=== PATIENT | male | born 1955 | race Caucasian/White ===

== ENCOUNTER 2018-08-03 00:20 | Emergency (ER) | payer MEDICARE ==
[2018-08-03 00:28] VITALS: TEMP 98
[2018-08-03] MEDS ORDERED: ONDANSETRON 4 MG/2 ML VIAL IVP STA (01:07)
[2018-08-03] MEDS ORDERED: MORPHINE SULFATE 4 MG/ML SYRINGE IV STA (01:07)
[2018-08-03] MEDS ORDERED: SODIUM CHLORIDE 0.9% 1,000 ML IV STA (01:07)
--- NOTE | 2018-08-03 02:23 | ED ---
Back Pain HPI - General Chief Complaint: Back Pain/Injury Stated Complaint: back pain Time Seen by Provider: 08/03/18 00:33 Source: patient, EMS Limitations: no limitations - History of Present Illness Initial Comments: 63-year-old male patient presents the emergency department today for evaluation of increased low back pain. Patient states he does have a history of chronic back pain related to remote back fractures. Patient states that over the last week his pain has increased. Patient states he was standing doing dishes when his legs gave out on him and he fell striking his back against the wall last . Patient states since this time his pain has been significantly worse. States that he has not been able to eat or drink for the last week due to the pain. He is complaining of some mild abdominal discomfort. He denies any loss of bowel or bladder control. Denies any radiation of the pain down his legs. He denies any saddle anesthesia. He denies fever or chills. Denies nausea, vomiting, dizziness, weakness, chest pain, or shortness of breath. Patient denies any recent rash, diarrhea, constipation, back pain, numbness, tingling, dizziness, weakness, hematuria, dysuria, urinary urgency, urinary frequency, headache, visual changes, or any other complaints. - Related Data Home Medications Medication Instructions Recorded Confirmed ALPRAZolam [Xanax] 0.5 mg PO HS PRN 02/23/14 02/23/14 Amitriptyline HCl [Elavil] 25 mg PO HS 02/23/14 02/23/14 Hydrocodone/Acetaminophen 1 each PO QID PRN 02/23/14 02/23/14 [Hydrocodone/Acetaminophen 10-325] Previous Rx's Medication Instructions Recorded ALPRAZolam [Xanax] 0.5 mg PO Q12HR PRN #12 tablet 02/23/14 Amitriptyline HCl [Elavil] 25 mg PO HS #12 tablet 02/23/14 Hydrocodone/Acetaminophen [[place] 1 each PO Q4HR PRN #12 tablet 02/23/14 10-325 Tablet] Allergies Allergy/AdvReac Type Severity Reaction Status Date / Time No Known Allergies Allergy Verified 02/23/14 01:55 Review of Systems ROS Statement: Those systems with pertinent positive or pertinent negative responses have been documented in the HPI. ROS Other: All systems not noted in ROS Statement are negative. Past Medical History Additional Past Medical History / Comment(s): chronic back pain History of Any Multi-Drug Resistant Organisms: None Reported Past Surgical History: Hernia Repair, Orthopedic Surgery Past Psychological History: No Psychological Hx Reported Smoking Status: Current every day smoker Past Alcohol Use History: Daily, Heavy Past Drug Use History: None Reported General Exam Limitations: no limitations General appearance: alert, in no apparent distress, other (This is a well- developed, well-nourished elderly male patient in no acute distress. Vital signs upon presentation are temperature 98.0F, pulse 102, respirations 20, blood pressure 138/81, pulse ox 91% on room air.) ENT exam: Present: normal exam, normal oropharynx, mucous membranes moist Respiratory exam: Present: wheezes (Patient has expiratory wheezing throughout all posterior lung starkey.). Absent: normal lung sounds bilaterally, respiratory distress, rales, rhonchi, stridor Cardiovascular Exam: Present: regular rate, normal rhythm, normal heart sounds. Absent: systolic murmur, diastolic murmur, rubs, gallop, clicks GI/Abdominal exam: Present: soft, tenderness (Reports mild generalized tenderness), normal bowel sounds. Absent: distended, guarding, rebound, rigid Back exam: Present: normal inspection, vertebral tenderness (Lower lumbar tenderness) Neurological exam: Present: alert, oriented X3, CN II-XII intact Psychiatric exam: Present: normal affect, normal mood Skin exam: Present: warm, dry, intact, normal color. Absent: rash Course Vital Signs 08/03/18 00:22 Temperature 98.0 F Pulse Rate 102 H Respiratory 20 Rate Blood Pressure 138/81 O2 Sat by Pulse 91 L Oximetry Medical Decision Making - Medical Decision Making 63-year-old male patient who admits to being a daily drinker presents the emergency department today with complaints of increased low back pain for the last week. Physical examination did reveal some mild generalized abdominal tenderness. Patient is neurologically intact with no focal deficits. No concerning symptoms for cauda equina. Did perform CT abdomen and pelvis to include the lumbar spine which showed no acute abnormalities other than some dilated small bowel presence of fluid-filled loops consistent with nonspecific enteritis. Patient will be discharged home to follow-up with his primary care physician to obtain prescriptions for pain for his chronic pain symptoms. He will be instructed to start with clear liquid diet and advance as tolerated. Most likely patient's low oxygen saturation is chronic as he does have history of COPD and lungs are wheezy. He does not complaining of shortness of breath at this time. He is instructed to follow up with primary care physician for recheck in 1-2 days for further evaluation of his increased low back pain as well as for management of his chronic COPD symptoms. I did not feel comfortable discharging patient with prescriptions due to patient's use of alcohol daily. Return parameters were discussed in detail. He verbalizes understanding and agrees with this plan. - Lab Data Result diagrams: 08/03/18 02:24 08/03/18 02:24 Lab Results 08/03/18 08/03/18 Range/Units 02:24 02:24 WBC 13.3 H (3.8-10.6) k/uL RBC 4.65 (4.30-5.90) m/uL Hgb 15.1 (13.0-17.5) gm/dL Hct 46.0 (39.0-53.0) % MCV 98.9 (80.0-100.0) fL MCH 32.4 (25.0-35.0) pg MCHC 32.7 (31.0-37.0) g/dL RDW 16.4 H (11.5-15.5) % Plt Count 292 (150-450) k/uL Neutrophils % 84 % Lymphocytes % 9 % Monocytes % 5 % Eosinophils % 1 % Basophils % 0 % Neutrophils # 11.2 H (1.3-7.7) k/uL Lymphocytes # 1.2 (1.0-4.8) k/uL Monocytes # 0.6 (0-1.0) k/uL Eosinophils # 0.2 (0-0.7) k/uL Basophils # 0.0 (0-0.2) k/uL Anisocytosis Slight Macrocytosis Slight Sodium 130 L (137-145) mmol/L Potassium 4.6 (3.5-5.1) mmol/L Chloride 97 L (98-107) mmol/L Carbon Dioxide 21 L (22-30) mmol/L Anion Gap 12 mmol/L BUN 8 L (9-20) mg/dL Creatinine 0.65 L (0.66-1.25) mg/dL Est GFR (CKD-EPI)AfAm >90 (>60 ml/min/1.73 sqM) Est GFR (CKD-EPI)NonAf >90 (>60 ml/min/1.73 sqM) Glucose 113 H (74-99) mg/dL Calcium 9.4 (8.4-10.2) mg/dL Total Bilirubin 0.4 (0.2-1.3) mg/dL AST 37 (17-59) U/L ALT 37 (21-72) U/L Alkaline Phosphatase 160 H (38-126) U/L Total Protein 6.8 (6.3-8.2) g/dL Albumin 3.7 (3.5-5.0) g/dL Amylase 33 (30-110) U/L Lipase 60 (23-300) U/L - Radiology Data Radiology results: report reviewed, image reviewed Two-view x-ray of the chest is obtained. There is no heart failure pneumonic infiltrate. heart size is normal. there is no pleural effusion. there is slight coarsening of the interstitial markings. there is emphysematous changes in the upper lobes. impression by dr. lyman shows copd and pulmonary fibrosis. There is clearing of the right lower lobe pneumonia compared to old exam. CT of the abdomen and pelvis was obtained. Report was reviewed in its entirety. Impression by Dr. Lyman shows compression fractures as above there are probably old. I see no acute fracture. No evidence of any significant bony spinal stenosis in the lumbar spine. Mild changes of the jejunum as well as suggestive of nonspecific enteritis. Nonobstructing right renal calculi. Nonspecific upper abdominal lymph nodes are likely inflammatory. Disposition Clinical Impression: Chronic low back pain, Enteritis Disposition: HOME SELF-CARE Condition: Good Instructions: Chronic Back Pain (ED), Enteritis (ED) Additional Instructions: Start with clear liquid diet and advance as tolerated. Follow-up through primary care physician to obtain pain management prescriptions. Return to the emergency department immediately for any new, worsening, or concerning symptoms. Is patient prescribed a controlled substance at d/c from ED?: No Referrals: Teofilo Paul DO [Primary Care Provider] - 1-2 days Time of Disposition: 04:02
[2018-08-03 02:38] LABS: Anisocytosis Slight; Basophils % (A) 0 %; Eosinophils # (A) 0.2 k/uL (0-0.7); Eosinophils % (A) 1 %; HGB 15.1 gm/dL (13.0-17.5); Lymphocytes # (A) 1.2 k/uL (1.0-4.8); Lymphocytes % (A) 9 %; MCH 32.4 pg (25.0-35.0); MCHC 32.7 g/dL (31.0-37.0); MCV 98.9 fL (80.0-100.0); Macrocytosis Slight; Mean Platelet Volume 6.8; Monocytes # (A) 0.6 k/uL (0-1.0); Monocytes % (A) 5 %; Neutrophils # (A) 11.2 k/uL (1.3-7.7); Neutrophils % (A) 84 %; Platelet Count 292 k/uL (150-450); RBC 4.65 m/uL (4.30-5.90); RDW 16.4 % (11.5-15.5); WBC 13.3 k/uL (3.8-10.6)
[2018-08-03 02:47] LABS: ALT 37 U/L (21-72); AST 37 U/L (17-59); Albumin 3.7 g/dL (3.5-5.0); Alkaline Phosphatase 160 U/L (38-126); Amylase 33 U/L (30-110); Anion Gap 12 mmol/L; Blood Urea Nitrogen 8 mg/dL (9-20); Calcium 9.4 mg/dL (8.4-10.2); Carbon Dioxide 21 mmol/L (22-30); Chloride 97 mmol/L (98-107); Glucose 113 mg/dL (74-99); Lipase 60 U/L (23-300); Potassium 4.6 mmol/L (3.5-5.1); Sodium 130 mmol/L (137-145); Total Bilirubin 0.4 mg/dL (0.2-1.3); Total Protein 6.8 g/dL (6.3-8.2)
--- NOTE | 2018-08-03 03:03 | XR ---
EXAMINATION TYPE: XR chest 2V DATE OF EXAM: 08/03/2018 COMPARISON: 07/03/2011 HISTORY: Chest pain TECHNIQUE: Frontal and lateral views of the chest are obtained. FINDINGS: There is no heart failure nor confluent pneumonic infiltrate. Heart size is normal. There is no pleural effusion. There is slight coarsening of interstitial markings. There are emphysematous changes in the upper lobes. IMPRESSION: COPD and pulmonary fibrosis. There is clearing of right lower lobe pneumonia compared to old exam.
--- NOTE | 2018-08-03 03:15 | CT ---
EXAMINATION TYPE: CT abdomen pelvis wo con DATE OF EXAM: 08/03/2018 COMPARISON: None HISTORY: lower back pain CT DLP: 421.30 mGycm Automated exposure control for dose reduction was used. TECHNIQUE: Helical acquisition of images was performed from the lung bases through the pelvis. FINDINGS: There is minimal interstitial linear density at the right lung base. There are small linear density i n the right middle lobe. There is no pleural effusion. Heart size is normal. There is no pericardial effusion. Liver and spleen appear normal. Bile ducts are not dilated. There is no evidence of a pancreatic mass . Gallbladder appears normal. Gallbladder is distended and measures 4 cm in diameter. There are scattered peripancreatic lymph nodes and mesenteric lymph nodes that measure up to 1 cm. Th e stomach appears normal. There is no adrenal mass. There is a 2 mm calcification upper pole right kidney. There is no hydronep hrosis. There is 3 mm calcification lower pole right kidney. There is a 2 cm cortical cyst lower pole right kidney. There are some distended loops of air and fluid-filled small bowel in the mid abdomen. I do not see e vidence of a mechanical bowel obstruction. Small bowel measures up to 2.3 cm. There is some mild wall thickening of the proximal jejunum. There is no sign of free air. There is no ascites. There are spondylotic changes in the lumbar spine. There is 5% depression superior endplate of L2. There is 10-20% anterior wedging of T12 and T11. Thi s appears old. There is small posterior disc herniation at L4-5 and L5-S1. I see no significant spina l stenosis. The appendix appears normal. There is interposition of the hepatic flexure of the colon which is anterior and extends up to the di aphragm. IMPRESSION: THERE ARE COMPRESSION FRACTURES ABOVE THAT ARE PROBABLY OLD. I SEE NO ACUTE FRACTURE. NO EVIDENCE OF ANY SIGNIFICANT BONY SPINAL STENOSIS IN THE LUMBAR SPINE. MILD CHANGES OF THE JEJUNUM ABOVE SUGGESTIVE OF NONSPECIFIC ENTERITIS. NONOBSTRUCTING RIGHT RENAL CALCULI. Nonspecific upper abdominal lymph nodes are likely inflammatory.
[2018-08-03 04:02] VITALS: BP 128/67; PULSE 111; RESP 18
== END 2018-08-03 04:25 | disposition home or self-care (01) ==
LOC: EC 00:20
DX: K52.9 Noninfective gastroenteritis and colitis, unspecified (principal); M54.5 Low back pain; G89.29 Other chronic pain; F17.200 Nicotine dependence, unspecified, uncomplicated; Z98.890 Other specified postprocedural states; Z79.899 Other long term (current) drug therapy; W01.198A Fall on same level from slipping, tripping and stumbling with subsequent striking against other object, initial encounter
CPT/HCPCS: 99284; 96374; 96375; 96361; 36415; 80053; 82150; 83690; 85025; 71046; 74176; J2270; J2405

== ENCOUNTER 2018-08-04 08:05 | Emergency (ER) | payer MEDICARE ==
[2018-08-04] MEDS ORDERED: DIAZEPAM 5 MG TAB PO STA (08:23)
[2018-08-04] MEDS ORDERED: HYDROmorphone 1 MG/ML 1 ML SYRINGE IM STA (08:23)
[2018-08-04] MEDS ORDERED: IBUPROFEN 800 MG TAB PO STA (08:23)
--- NOTE | 2018-08-04 08:38 | ED ---
Back Pain HPI - General Chief Complaint: Back Pain/Injury Stated Complaint: back pain Time Seen by Provider: 08/04/18 08:06 Source: patient, RN notes reviewed, old records reviewed Limitations: no limitations - History of Present Illness Initial Comments: This is a 63-year-old male the ER for evaluation of back pain. Patient has acute on chronic back pain has no current pain management, patient denies any new trauma no neurological complaints no loss of bowel or bladder, no fevers. MD Complaint: back pain -: year(s) Similar Symptoms Previously: Yes Place: home Radiation: buttocks Severity: moderate Severity scale (1-10): 6 Quality: aching Consistency: constant Improves With: medication (Patient is out of pain meds) Worsens With: movement, walking Context: unknown Associated Symptoms: denies other symptoms - Related Data Home Medications Medication Instructions Recorded Confirmed Ibuprofen [Advil] 400 mg PO Q8HR PRN 08/04/18 08/04/18 Ibuprofen/Diphenhydramine HCl 2 cap PO HS 08/04/18 08/04/18 [Advil Pm Liqui-Gels] Multivit-Min/FA/Lycopen/Lutein 1 tab PO DAILY 08/04/18 08/04/18 [Centrum Silver Tablet] Allergies Allergy/AdvReac Type Severity Reaction Status Date / Time No Known Allergies Allergy Verified 08/04/18 08:45 Review of Systems ROS Statement: Those systems with pertinent positive or pertinent negative responses have been documented in the HPI. ROS Other: All systems not noted in ROS Statement are negative. Past Medical History Additional Past Medical History / Comment(s): chronic back pain History of Any Multi-Drug Resistant Organisms: None Reported Past Surgical History: Hernia Repair, Orthopedic Surgery Past Psychological History: No Psychological Hx Reported Smoking Status: Current every day smoker Past Alcohol Use History: Daily, Heavy Past Drug Use History: None Reported General Exam Limitations: no limitations General appearance: alert, in no apparent distress Head exam: Present: atraumatic, normocephalic, normal inspection Eye exam: Present: normal appearance, PERRL, EOMI. Absent: scleral icterus, conjunctival injection, periorbital swelling ENT exam: Present: normal exam, mucous membranes moist Neck exam: Present: normal inspection. Absent: tenderness, meningismus, lymphadenopathy Respiratory exam: Present: normal lung sounds bilaterally. Absent: respiratory distress, wheezes, rales, rhonchi, stridor Cardiovascular Exam: Present: regular rate, normal rhythm, normal heart sounds. Absent: systolic murmur, diastolic murmur, rubs, gallop, clicks GI/Abdominal exam: Present: soft, normal bowel sounds. Absent: distended, tenderness, guarding, rebound, rigid Extremities exam: Present: normal inspection, full ROM, normal capillary refill. Absent: tenderness, pedal edema, joint swelling, calf tenderness Back exam: Present: normal inspection Neurological exam: Present: alert, oriented X3, CN II-XII intact Psychiatric exam: Present: normal affect, normal mood Skin exam: Present: warm, dry, intact, normal color. Absent: rash Course Vital Signs 08/04/18 08/04/18 08/04/18 08:08 08:12 09:16 Temperature 98 F Pulse Rate 128 H 122 H Respiratory 20 18 Rate Blood Pressure 105/67 99/59 O2 Sat by Pulse 92 L 93 L Oximetry 08/04/18 10:04 Temperature 98.4 F Pulse Rate Respiratory Rate Blood Pressure O2 Sat by Pulse Oximetry - Reevaluation(s) Reevaluation #1: Medical record is reviewed Patient recent ER visit for same a CAT scan of his back done at the time which was negative Medical Decision Making - Medical Decision Making 63 male the ER with acute on chronic pain pain. Patient will be discharged home Disposition Clinical Impression: Chronic low back pain, Mid back pain Disposition: HOME SELF-CARE Condition: Good Instructions: Acute Low Back Pain (ED), Chronic Back Pain (ED) Is patient prescribed a controlled substance at d/c from ED?: No Referrals: Teofilo Paul DO [Primary Care Provider] - 1-2 days
[2018-08-04 09:17] VITALS: BP 99/59; PULSE 122; RESP 18
[2018-08-04 10:06] VITALS: TEMP 98.4
== END 2018-08-04 09:56 | disposition home or self-care (01) ==
LOC: EC 08:05
DX: G89.29 Other chronic pain (principal); M54.5 Low back pain; M54.6 Pain in thoracic spine; F17.200 Nicotine dependence, unspecified, uncomplicated; Z79.1 Long term (current) use of non-steroidal anti-inflammatories (NSAID); Z79.899 Other long term (current) drug therapy
CPT/HCPCS: 96372; 99284